=== PATIENT | male | born 1995 | race Caucasian/White ===

== ENCOUNTER 2016-09-07 16:09 | Emergency (ER) | payer SELFPAY ==
[~2016-09-07] VITALS: Ht 190.5 cm; Wt 63.5 kg
[~2016-09-07 16:09] MED LIST: AMOXICILLIN500 MG PO; ATARAX25 MG PO; AUGMENTIN 875875 MG PO; BACTRIM DS 8001 TA1 PO; BACTROBAN2% TP; CLARITIN-D 12 H1 TAB PO; CLEOCIN150 MG PO; CLINDAMYCIN HC300 MG PO; DOXYCYCLINE100 M3 PO; ELIMITE 5%60 GM PO; FLONASE ALLERG9.9 ML NAS; MEDROL DOSEPAK4 MG PO; MOTRIN600 MG PO; MOTRIN800 MG PO; NIZORAL 2%15 GM PO; NKHM; NKHM PO; PREDNISONE20 MG PO; ROBITUSSIN DM 105 ML PO; TYLENOL EXTRA500 M2 PO; ZITHROMAX Z PA250 MG PO; ZOFRAN ODT4 MG SL
[2016-09-07 16:28] VITALS: BP 126/70
== END 2016-09-07 18:00 | disposition home or self-care (01) ==
LOC: ED 16:09
DX: S40.021A Contusion of right upper arm, initial encounter (principal); F17.200 Nicotine dependence, unspecified, uncomplicated; Z88.1 Allergy status to other antibiotic agents; W22.01XA Walked into wall, initial encounter; Y93.89 Activity, other specified; Y92.89 Other specified places as the place of occurrence of the external cause; Y99.9 Unspecified external cause status

== ENCOUNTER 2016-09-18 10:52 | Emergency (ER) | payer SELFPAY ==
[~2016-09-18] VITALS: Ht 154.9 cm; Wt 68.0 kg
[2016-09-18 11:02] VITALS: BP 124/63
[2016-09-18] MEDS ORDERED: BACTRIM DS 8001 TA1 PO (11:58)
[2016-09-18] MEDS ORDERED: Motrin,Rufen800 MG PO (11:58)
== END 2016-09-18 12:49 | disposition home or self-care (01) ==
LOC: ED 10:52
DX: S81.011A Laceration without foreign body, right knee, initial encounter (principal); F17.200 Nicotine dependence, unspecified, uncomplicated; Z88.1 Allergy status to other antibiotic agents; V89.9XXA Person injured in unspecified vehicle accident, initial encounter; Y93.89 Activity, other specified; Y92.413 State road as the place of occurrence of the external cause; Y99.9 Unspecified external cause status

== ENCOUNTER 2016-12-06 16:48 | Emergency (ER) | payer SELFPAY ==
[~2016-12-06] VITALS: Ht 185.4 cm; Wt 72.6 kg
[~2016-12-06 16:48] MED LIST changes: +Motrin,Rufen800 MG PO
[2016-12-06 17:21] VITALS: BP 126/63
== END 2016-12-06 22:03 | disposition home or self-care (01) ==
LOC: ED 16:48
DX: S20.361A Insect bite (nonvenomous) of right front wall of thorax, initial encounter (principal); F17.200 Nicotine dependence, unspecified, uncomplicated; Z88.1 Allergy status to other antibiotic agents; W57.XXXA Bitten or stung by nonvenomous insect and other nonvenomous arthropods, initial encounter; Y93.89 Activity, other specified; Y92.9 Unspecified place or not applicable; Y99.9 Unspecified external cause status

== ENCOUNTER 2016-12-22 22:51 | Emergency (ER) | payer SELFPAY ==
[~2016-12-22] VITALS: Ht 187.9 cm; Wt 63.5 kg
[2016-12-22 22:57] VITALS: BP 132/58
[2016-12-22] MEDS ORDERED: NAPROSYN500 MG PO (23:05)
== END 2016-12-22 23:45 | disposition home or self-care (01) ==
LOC: ED 22:51
DX: S20.211A Contusion of right front wall of thorax, initial encounter (principal); R03.0 Elevated blood-pressure reading, without diagnosis of hypertension; F17.200 Nicotine dependence, unspecified, uncomplicated; Z88.1 Allergy status to other antibiotic agents; W50.0XXA Accidental hit or strike by another person, initial encounter; Y93.89 Activity, other specified; Y92.9 Unspecified place or not applicable; Y99.9 Unspecified external cause status

== ENCOUNTER 2017-04-05 11:41 | Emergency (ER) | payer SELFPAY ==
[~2017-04-05] VITALS: Ht 187.9 cm; Wt 68.0 kg
[~2017-04-05 11:41] MED LIST changes: +NAPROSYN500 MG PO
[2017-04-05 11:54] VITALS: BP 108/52
[2017-04-05 12:16] LABS: BASO % 0.2 % (0.0-1.0); EOS # 0.1 10*3/uL (0.0-0.4); EOS % 0.8 % (1.0-4.0); HEMATOCRIT 45.2 % (42.0-52.0); HEMOGLOBIN 16.4 g/dl (14.0-18.0); LYMPH # 0.6 10*3/uL (1.3-4.4); LYMPH % 3.4 % (27.0-41.0); MEAN CELL VOLUME 82.2 fl (80.0-94.0); MEAN CORPUSCULAR HGB 29.8 pg (27.0-31.0); MEAN CORPUSCULAR HGB CONC 36.3 g/dl (33.0-37.0); MEAN PLATELET VOLUME 10.4 fl (9.6-12.3); MONO % 5.6 % (3.0-9.0); NEUT % 89.4 % (47.0-73.0); PLATELET COUNT AUTOMATED 180 10*3/uL (130-400); RED CELL DISTRI WIDTH 12.5 % (0-14.5); WHITE BLOOD COUNT 17.9 10*3/uL (4.8-10.8)
[2017-04-05 12:30] LABS: ALBUMIN 4.7 gm/dl (3.1-4.5); ALKALINE PHOSPHATASE 72 U/L (45-117); BUN 24 mg/dl (7-24); CHLORIDE 103 mmol/L (98-107); CREATININE 1.12 mg/dL (0.70-1.30); LIPASE 93 U/L (73-393); POTASSIUM 3.7 mmol/L (3.5-5.1); SGOT/AST 22 IU/L (3-35); SGPT/ALT 34 U/L (12-78); SODIUM 138 mmol/L (136-145); TOTAL PROTEIN 8.3 gm/dL (6.4-8.2)
[2017-04-05 12:35] LABS: BILIRUBIN 1+ (NEGATIVE); BLOOD NEGATIVE (NEGATIVE); CLARITY CLEAR (CLEAR); COLOR YELLOW (YELLOW); GLUCOSE NEGATIVE (NEGATIVE); KETONE 2+ (NEGATIVE); LEUKO ESTERASE NEGATIVE (NEGATIVE); NITRITE NEGATIVE (NEGATIVE); SPECIFIC GRAVITY 1.015 (1.005-1.030)
[2017-04-05 12:42] LABS: BACTERIA 1+; EPITHELIAL CELLS 0-2; MUCOUS 3+
[2017-04-05 12:53] LABS: URINE AMPHETAMINES < 1000 (1000ng/ml); URINE BARBITURATES < 200 (200ng/ml); URINE BENZODIAZEPINES < 200 (200ng/ml); URINE CANNABINOIDS (THC) > 50 (50ng/ml); URINE COCAINE > 300 (300ng/ml); URINE METHADONE < 300 (300ng/ml); URINE OPIATES < 300 (300ng/ml)
[2017-04-05 12:55] LABS: URINE PHENCYCLIDINE < 25 (25ng/ml)
[2017-04-05] MEDS ORDERED: Zofran4 MG PO (14:10)
== END 2017-04-05 14:09 | disposition home or self-care (01) ==
LOC: ED 11:41
PROVIDERS: Emergency Medicine
DX: K52.9 Noninfective gastroenteritis and colitis, unspecified (principal); F14.10 Cocaine abuse, uncomplicated; D72.829 Elevated white blood cell count, unspecified; F17.210 Nicotine dependence, cigarettes, uncomplicated; Z88.1 Allergy status to other antibiotic agents

== ENCOUNTER 2017-05-04 22:01 | Emergency (ER) | payer SELFPAY ==
[~2017-05-04] VITALS: Ht 185.4 cm; Wt 63.5 kg
[~2017-05-04 22:01] MED LIST changes: +Zofran4 MG PO
[2017-05-04 22:16] VITALS: BP 121/72
[2017-05-04] MEDS ORDERED: AMOXICILLIN500 M2 PO (22:25)
[2017-05-04] MEDS ORDERED: Motrin,Rufen800 MG PO (22:25)
== END 2017-05-04 22:22 | disposition home or self-care (01) ==
LOC: ED 22:01
DX: K08.89 Other specified disorders of teeth and supporting structures (principal); F17.200 Nicotine dependence, unspecified, uncomplicated; F10.10 Alcohol abuse, uncomplicated; Z88.8 Allergy status to other drugs, medicaments and biological substances

== ENCOUNTER 2017-06-16 13:22 | Emergency (ER) | payer SELFPAY ==
[~2017-06-16] VITALS: Ht 185.4 cm; Wt 68.0 kg
[~2017-06-16 13:22] MED LIST changes: +AMOXICILLIN500 M2 PO
[2017-06-16 13:30] VITALS: BP 103/80
[2017-06-16] MEDS ORDERED: CLINDAMYCIN HC300 MG PO (13:51)
[2017-06-16] MEDS ORDERED: Motrin,Rufen800 MG PO (13:51)
== END 2017-06-16 14:20 | disposition home or self-care (01) ==
LOC: ED 13:22
DX: K04.7 Periapical abscess without sinus (principal); F17.200 Nicotine dependence, unspecified, uncomplicated; Z88.1 Allergy status to other antibiotic agents

== ENCOUNTER 2017-07-22 16:56 | Emergency (ER) | payer SELFPAY ==
[~2017-07-22] VITALS: Ht 187.9 cm; Wt 68.0 kg
[2017-07-22 17:02] VITALS: BP 118/53
[2017-07-22 17:34] LABS: BILIRUBIN NEGATIVE (NEGATIVE); BLOOD NEGATIVE (NEGATIVE); CLARITY CLEAR (CLEAR); COLOR YELLOW (YELLOW); GLUCOSE NEGATIVE (NEGATIVE); KETONE NEGATIVE (NEGATIVE); LEUKO ESTERASE NEGATIVE (NEGATIVE); NITRITE NEGATIVE (NEGATIVE); SPECIFIC GRAVITY <= 1.005 (1.005-1.030); UROBILINOGEN 0.2 E.U./dl (0.2-1.0)
[2017-07-22 17:41] LABS: RBC 0-2 rbc/hpf (0-2)
[2017-07-22 17:42] LABS: BACTERIA TRACE; EPITHELIAL CELLS 0-2
[2017-07-23 20:09] LABS: GONOCOCCUS BY NAA Negative (Negative)
== END 2017-07-22 17:28 | disposition home or self-care (01) ==
LOC: ED 16:56
PROVIDERS: Emergency Medicine
DX: Z11.3 Encounter for screening for infections with a predominantly sexual mode of transmission (principal); Z88.1 Allergy status to other antibiotic agents; Z79.899 Other long term (current) drug therapy

== ENCOUNTER 2017-08-07 22:45 | Emergency (ER) | payer SELFPAY ==
[~2017-08-07] VITALS: Ht 187.9 cm; Wt 68.0 kg
[2017-08-07 22:46] VITALS: BP 126/63
[2017-08-07] MEDS ORDERED: CLINDAMYCIN HC300 MG PO (23:11)
== END 2017-08-07 23:29 | disposition home or self-care (01) ==
LOC: ED 22:45
DX: K02.9 Dental caries, unspecified (principal); Z88.1 Allergy status to other antibiotic agents

== ENCOUNTER 2017-09-16 13:43 | Emergency (ER) | payer SELFPAY ==
[~2017-09-16] VITALS: Ht 187.9 cm; Wt 68.0 kg
[2017-09-16 13:46] VITALS: BP 115/77
[2017-09-16] MEDS ORDERED: NAPROSYN500 MG PO (13:46)
[2017-09-16] MEDS ORDERED: Peridex 473 ML473 ML PO (13:46)
[2017-09-16] MEDS ORDERED: PENICILLIN VK500 MG PO (13:46)
== END 2017-09-16 13:56 | disposition home or self-care (01) ==
LOC: ED 13:43
DX: K04.7 Periapical abscess without sinus (principal); Z87.01 Personal history of pneumonia (recurrent); Z88.1 Allergy status to other antibiotic agents

== ENCOUNTER 2017-10-02 23:36 | Emergency (ER) | payer SELFPAY ==
[~2017-10-02] VITALS: Ht 193 cm; Wt 63.5 kg
[~2017-10-02 23:36] MED LIST changes: +PENICILLIN VK500 MG PO; +Peridex 473 ML473 ML PO
[2017-10-02 23:41] VITALS: BP 108/66
== END 2017-10-03 01:47 | disposition left against medical advice (07) ==
LOC: ED 23:36
DX: R07.9 Chest pain, unspecified (principal); F17.200 Nicotine dependence, unspecified, uncomplicated; Z88.8 Allergy status to other drugs, medicaments and biological substances; Z79.899 Other long term (current) drug therapy; Y04.0XXA Assault by unarmed brawl or fight, initial encounter; Y93.89 Activity, other specified; Y92.89 Other specified places as the place of occurrence of the external cause; Y99.8 Other external cause status

== ENCOUNTER 2017-12-17 09:48 | Emergency (ER) | payer SELFPAY ==
[~2017-12-17] VITALS: Wt 68.0 kg
[2017-12-17 09:49] VITALS: BP 131/79
[2017-12-17] MEDS ORDERED: CLINDAMYCIN150 MG PO (11:14)
[2017-12-17] MEDS ORDERED: NAPROSYN500 MG PO (11:14)
== END 2017-12-17 10:59 | disposition home or self-care (01) ==
LOC: ED 09:48
DX: S22.32XA Fracture of one rib, left side, initial encounter for closed fracture (principal); R68.84 Jaw pain; R51 Headache; R03.0 Elevated blood-pressure reading, without diagnosis of hypertension; Z88.1 Allergy status to other antibiotic agents; W10.9XXA Fall (on) (from) unspecified stairs and steps, initial encounter; Y93.89 Activity, other specified; Y92.89 Other specified places as the place of occurrence of the external cause; Y99.8 Other external cause status

== ENCOUNTER 2018-05-10 18:51 | Emergency (ER) | payer SELFPAY ==
[~2018-05-10] VITALS: Ht 187.9 cm; Wt 63.5 kg
[2018-05-10 18:51] VITALS: BP 151/93
[~2018-05-10 18:51] MED LIST changes: +CLINDAMYCIN150 MG PO
[2018-05-10 19:54] LABS: BILIRUBIN NEGATIVE (NEGATIVE); BLOOD NEGATIVE (NEGATIVE); CLARITY CLEAR (CLEAR); COLOR YELLOW (YELLOW); GLUCOSE NEGATIVE (NEGATIVE); KETONE NEGATIVE (NEGATIVE); LEUKO ESTERASE NEGATIVE (NEGATIVE); NITRITE NEGATIVE (NEGATIVE); UROBILINOGEN 0.2 E.U./dl (0.2-1.0)
[2018-05-10 20:10] LABS: BACTERIA 2+; EPITHELIAL CELLS 0-2; RBC 0-2 rbc/hpf (0-2); WBC 0-2 wbc/hpf (0-5)
[2018-05-10] MEDS ORDERED: PENICILLIN-VK500 MG PO (20:57)
[2018-05-14 22:03] LABS: GONOCOCCUS BY NAA Negative (Negative)
== END 2018-05-10 23:13 | disposition home or self-care (01) ==
LOC: ED 18:51
PROVIDERS: Nurse Practitioner
DX: K02.9 Dental caries, unspecified (principal); F17.200 Nicotine dependence, unspecified, uncomplicated; Z20.2 Contact with and (suspected) exposure to infections with a predominantly sexual mode of transmission

== ENCOUNTER 2018-06-29 11:26 | Emergency (ER) | payer OTHER ==
[~2018-06-29] VITALS: Ht 187.9 cm; Wt 68.0 kg
[~2018-06-29 11:26] MED LIST changes: +PENICILLIN-VK500 MG PO
[2018-06-29 11:27] VITALS: BP 130/82
[2018-06-29] MEDS ORDERED: IBUPROFEN600 MG PO (12:38)
[2018-06-29] MEDS ORDERED: CLINDAMYCIN HC300 MG PO (12:38)
== END 2018-06-29 13:00 | disposition home or self-care (01) ==
LOC: ED 11:26
DX: K02.9 Dental caries, unspecified (principal); Z88.1 Allergy status to other antibiotic agents; Z88.8 Allergy status to other drugs, medicaments and biological substances

== ENCOUNTER 2018-07-03 15:47 | Emergency (ER) | payer OTHER ==
[~2018-07-03] VITALS: Ht 187.9 cm; Wt 68.0 kg
[~2018-07-03 15:47] MED LIST changes: +IBUPROFEN600 MG PO
[2018-07-03 15:51] VITALS: BP 126/73
[2018-07-03] MEDS ORDERED: ANTIBIOTIC28.4 GM T (17:12)
[2018-07-03] MEDS ORDERED: SEPTDS PO (17:12)
== END 2018-07-03 17:20 | disposition home or self-care (01) ==
LOC: ED 15:47
DX: S61.210A Laceration without foreign body of right index finger without damage to nail, initial encounter (principal); S60.221A Contusion of right hand, initial encounter; W22.8XXA Striking against or struck by other objects, initial encounter; Y93.89 Activity, other specified; Y92.810 Car as the place of occurrence of the external cause; Y99.8 Other external cause status

== ENCOUNTER 2019-01-17 04:56 | Emergency (ER) | payer OTHER ==
[~2019-01-17] VITALS: Ht 187.9 cm; Wt 72.6 kg
--- NOTE | ~2019-01-17 | EKG ---
[place], [place] ELECTROCARDIOGRAM REPORT NAME: BRENNA STONE UNIT #: [id number] ROOM: DOCTOR: EPIPHANY DRAFT REPORT BIRTHDATE: [birth year] [facility] Test Date: 2019-01-17 Test Time: 05:30:51 Pat Name: BRENNA STONE Department: Room: Gender: [employer]: : 1995 Requested By: ARIE ESPINAL Order Number: [id number] Reading MD: Ariadne Velez MD Measurements Intervals [place] Rate: 87 P: 54 AL: 170 QRS: 69 QRSD: 86 T: 34 QT: 364 QTc: 438 Interpretive Statements Sinus rhythm Borderline T wave abnormalities No previous ECG available for comparison Electronically Signed On 01-18-2019 7:46:44 PDT by Ariadne Velez MD CM:EKGRPT:ELECTROCARDIOGRAM REPORT 0530 [id number] ARIE ESPINAL MD EPIPHANY DRAFT REPORT ARIE ESPINAL MD
[~2019-01-17 04:56] MED LIST changes: +ANTIBIOTIC28.4 GM T; +SEPTDS PO
[2019-01-17 05:26] LABS: BASO # 0.1 10*3/uL (0.0-0.1); BASO % 0.8 % (0.0-1.0); EOS # 0.3 10*3/uL (0.0-0.4); EOS % 2.6 % (1.0-4.0); HEMATOCRIT 47.8 % (42.0-52.0); HEMOGLOBIN 16.3 g/dl (14.0-18.0); LYMPH # 3.6 10*3/uL (1.3-4.4); LYMPH % 30.7 % (27.0-41.0); MEAN CELL VOLUME 85.1 fl (80.0-94.0); MEAN CORPUSCULAR HGB CONC 34.1 g/dl (33.0-37.0); MEAN PLATELET VOLUME 9.8 fl (9.6-12.3); MONO # 1.1 10*3/uL (0.1-1.0); MONO % 9.5 % (3.0-9.0); NEUT # 6.6 10*3/uL (2.3-7.9); PLATELET COUNT AUTOMATED 258 10*3/uL (130-400); RED BLOOD COUNT 5.62 10*6/uL (4.50-5.90); RED CELL DISTRI WIDTH 13.2 % (0-14.5); WHITE BLOOD COUNT 11.7 10*3/uL (4.8-10.8)
[2019-01-17 05:43] LABS: ALBUMIN 4.2 gm/dl (3.1-4.5); ALKALINE PHOSPHATASE 88 U/L (45-117); BUN 19 mg/dl (7-24); CHLORIDE 104 mmol/L (98-107); CREATININE 1.06 mg/dL (0.70-1.30); POTASSIUM 3.6 mmol/L (3.5-5.1); SGOT/AST 21 IU/L (3-35); SGPT/ALT 31 U/L (12-78); SODIUM 138 mmol/L (136-145); TOTAL PROTEIN 7.8 gm/dL (6.4-8.2)
[2019-01-17 05:44] LABS: TROPONIN I < 0.015 ng/ml (<0.045)
[2019-01-17 06:17] VITALS: BP 108/68
== END 2019-01-17 06:21 | disposition home or self-care (01) ==
LOC: ED 04:56
PROVIDERS: Emergency Medicine Emergency Medical Services
DX: T40.7X1A Poisoning by cannabis (derivatives), accidental (unintentional), initial encounter (principal); R40.20 Unspecified coma; F17.200 Nicotine dependence, unspecified, uncomplicated; Z88.1 Allergy status to other antibiotic agents; Z88.8 Allergy status to other drugs, medicaments and biological substances; Y92.89 Other specified places as the place of occurrence of the external cause

== ENCOUNTER 2019-05-26 14:46 | Emergency (ER) | payer OTHER ==
[~2019-05-26] VITALS: Ht 187.9 cm; Wt 68.0 kg
[2019-05-26 15:01] VITALS: BP 127/71
== END 2019-05-26 17:11 | disposition home or self-care (01) ==
LOC: ED 14:46
DX: S20.219A Contusion of unspecified front wall of thorax, initial encounter (principal); Z88.1 Allergy status to other antibiotic agents; Z88.8 Allergy status to other drugs, medicaments and biological substances; Y08.89XA Assault by other specified means, initial encounter; Y93.89 Activity, other specified; Y92.89 Other specified places as the place of occurrence of the external cause; Y99.8 Other external cause status

== ENCOUNTER 2019-12-28 10:57 | Emergency (ER) | payer OTHER ==
[2019-12-28 10:59] VITALS: BP 144/80
[2019-12-28 12:40] LABS: BASO # 0.1 10*3/uL (0.0-0.1); BASO % 0.3 % (0.0-1.0); EOS # 0.2 10*3/uL (0.0-0.4); HEMATOCRIT 44.3 % (42.0-52.0); LYMPH # 2.4 10*3/uL (1.3-4.4); LYMPH % 12.8 % (27.0-41.0); MEAN CELL VOLUME 83.3 fl (80.0-94.0); MEAN CORPUSCULAR HGB 27.6 pg (27.0-31.0); MEAN CORPUSCULAR HGB CONC 33.2 g/dl (33.0-37.0); MONO # 1.3 10*3/uL (0.1-1.0); MONO % 7.1 % (3.0-9.0); NEUT # 14.4 10*3/uL (2.3-7.9); PLATELET COUNT AUTOMATED 273 10*3/uL (130-400); RED BLOOD COUNT 5.32 10*6/uL (4.50-5.90); WHITE BLOOD COUNT 18.4 10*3/uL (4.8-10.8)
[2019-12-28 12:50] LABS: ACT PARTIAL THROMBO TIME 34.7 SECONDS (20.0-32.1); INTERNATIONAL NORM RATIO 1.1 (2.0-3.5)
[2019-12-28 12:55] LABS: ALBUMIN 4.4 gm/dl (3.1-4.5); ALKALINE PHOSPHATASE 98 U/L (45-117); BUN 26 mg/dl (7-24); CHLORIDE 104 mmol/L (98-107); CREATININE 1.17 mg/dL (0.70-1.30); POTASSIUM 4.1 mmol/L (3.5-5.1); SGOT/AST 30 IU/L (3-35); SGPT/ALT 38 U/L (12-78); SODIUM 134 mmol/L (136-145); TOTAL PROTEIN 8.6 gm/dL (6.4-8.2)
[2019-12-28 13:03] LABS: ACETAMINOPHEN (TYLENOL) < 5.0 ug/ml (10-30); ETHYL ALCOHOL < 3.0 mg/dl (<3)
== END 2019-12-28 18:30 | disposition home or self-care (01) ==
LOC: ED 10:57
PROVIDERS: Emergency Medicine
DX: R41.82 Altered mental status, unspecified (principal); J45.909 Unspecified asthma, uncomplicated; Z88.1 Allergy status to other antibiotic agents; Z88.8 Allergy status to other drugs, medicaments and biological substances

== ENCOUNTER 2021-02-08 07:09 | Emergency (ER) | payer OTHER ==
[~2021-02-08] VITALS: Ht 187.9 cm; Wt 68.0 kg
[2021-02-08 08:34] LABS: HEMATOCRIT 42.3 % (42.0-52.0); MEAN CELL VOLUME 83.4 fl (80.0-94.0); MEAN CORPUSCULAR HGB CONC 33.6 g/dl (33.0-37.0); MEAN PLATELET VOLUME 9.3 fl (9.6-12.3); PLATELET COUNT AUTOMATED 294 10*3/uL (130-400); RED BLOOD COUNT 5.07 10*6/uL (4.50-5.90); RED CELL DISTRI WIDTH 12.3 % (0-14.5); WHITE BLOOD COUNT 11.8 10*3/uL (4.8-10.8)
[2021-02-08 08:50] LABS: ALBUMIN 4.1 gm/dl (3.1-4.5); ALKALINE PHOSPHATASE 88 U/L (45-117); BUN 25 mg/dl (7-24); CHLORIDE 105 mmol/L (98-107); CREATININE 0.89 mg/dL (0.70-1.30); LIPASE 30 U/L (73-393); POTASSIUM 3.4 mmol/L (3.5-5.1); SGOT/AST 36 IU/L (3-35); SGPT/ALT 35 U/L (12-78); SODIUM 135 mmol/L (136-145); TOTAL PROTEIN 8.2 gm/dL (6.4-8.2)
[2021-02-08 09:20] LABS: PLATELET SUFFICIENCY NORMAL (NORMAL); TOTAL CELLS COUNTED 100 #CELLS
[2021-02-08 14:47] VITALS: BP 110/64
== END 2021-02-08 14:48 | disposition home or self-care (01) ==
LOC: ED 07:09
PROVIDERS: Emergency Medicine
DX: F15.10 Other stimulant abuse, uncomplicated (principal); F17.200 Nicotine dependence, unspecified, uncomplicated; Z88.8 Allergy status to other drugs, medicaments and biological substances

== ENCOUNTER 2022-08-14 23:28 | Emergency (ER) | payer MEDICAID ==
[~2022-08-14] VITALS: Ht 187.9 cm; Wt 72.6 kg
[2022-08-14 23:35] VITALS: BP 133/85
== END 2022-08-15 02:17 | disposition home or self-care (01) ==
LOC: ED 23:28
DX: S62.302A Unspecified fracture of third metacarpal bone, right hand, initial encounter for closed fracture (principal); J45.909 Unspecified asthma, uncomplicated; Z88.8 Allergy status to other drugs, medicaments and biological substances; Z98.890 Other specified postprocedural states; Z87.891 Personal history of nicotine dependence; W20.8XXA Other cause of strike by thrown, projected or falling object, initial encounter; Y93.H9 Activity, other involving exterior property and land maintenance, building and construction; Y92.89 Other specified places as the place of occurrence of the external cause; Y99.8 Other external cause status

== ENCOUNTER 2022-09-08 22:27 | Emergency (ER) | payer MEDICAID ==
[~2022-09-08] VITALS: Ht 187.9 cm; Wt 77.1 kg
[2022-09-08 22:30] VITALS: BP 124/78
== END 2022-09-09 00:01 | disposition home or self-care (01) ==
LOC: ED 22:27
DX: S61.411A Laceration without foreign body of right hand, initial encounter (principal); Z88.8 Allergy status to other drugs, medicaments and biological substances; W26.0XXA Contact with knife, initial encounter; Y93.89 Activity, other specified; Y92.89 Other specified places as the place of occurrence of the external cause; Y99.8 Other external cause status

== ENCOUNTER 2022-09-23 13:07 | Emergency (ER) | payer MEDICAID ==
[~2022-09-23] VITALS: Ht 187.9 cm; Wt 61.2 kg
[2022-09-23 14:13] VITALS: BP 110/66
[2022-09-23 14:46] LABS: BASO % 0.4 % (0.0-1.0); EOS # 0.1 10*3/uL (0.0-0.4); HEMATOCRIT 43.1 % (42.0-52.0); LYMPH % 27.7 % (27.0-41.0); MEAN CELL VOLUME 84.3 fl (80.0-94.0); MEAN CORPUSCULAR HGB 28.8 pg (27.0-31.0); MEAN CORPUSCULAR HGB CONC 34.1 g/dl (33.0-37.0); MEAN PLATELET VOLUME 10.2 fl (9.6-12.3); MONO # 1.2 10*3/uL (0.1-1.0); MONO % 16.3 % (3.0-9.0); NEUT # 3.9 10*3/uL (2.3-7.9); NEUT % 54.2 % (47.0-73.0); PLATELET COUNT AUTOMATED 217 10*3/uL (130-400); RED BLOOD COUNT 5.11 10*6/uL (4.50-5.90); RED CELL DISTRI WIDTH 13.2 % (0-14.5); WHITE BLOOD COUNT 7.1 10*3/uL (4.8-10.8)
[2022-09-23 15:12] LABS: ALKALINE PHOSPHATASE 78 U/L (46-116); BUN 15 mg/dl (9-23); CHLORIDE 106 mmol/L (98-107); LIPASE 41 U/L (12-53); POTASSIUM 4.2 mmol/L (3.4-5.1); SGPT/ALT 152 U/L (10-49); TOTAL PROTEIN 7.1 gm/dL (6.0-8.0)
[2022-09-23] MEDS ORDERED: PEPCID20 MG PO (17:14)
== END 2022-09-23 18:25 | disposition home or self-care (01) ==
LOC: ED 13:07
PROVIDERS: Nurse Practitioner Family
DX: K29.70 Gastritis, unspecified, without bleeding (principal); R74.01 Elevation of levels of liver transaminase levels; F17.200 Nicotine dependence, unspecified, uncomplicated; Z88.1 Allergy status to other antibiotic agents; Z88.8 Allergy status to other drugs, medicaments and biological substances

== ENCOUNTER 2023-05-04 16:38 | Emergency (ER) | payer OTHER ==
[~2023-05-04] VITALS: Wt 83.9 kg
[~2023-05-04 16:38] MED LIST changes: +PEPCID20 MG PO
[2023-05-04 16:58] VITALS: BP 138/72
== END 2023-05-04 20:46 | disposition home or self-care (01) ==
LOC: ED 16:38
DX: S86.911A Strain of unspecified muscle(s) and tendon(s) at lower leg level, right leg, initial encounter (principal); F17.210 Nicotine dependence, cigarettes, uncomplicated; Z88.8 Allergy status to other drugs, medicaments and biological substances; W18.09XA Striking against other object with subsequent fall, initial encounter; Y93.89 Activity, other specified; Y92.89 Other specified places as the place of occurrence of the external cause; Y99.8 Other external cause status